=== PATIENT | female | born 1965 | race Caucasian/White ===

== ENCOUNTER → 2020-01-20 | Outpatient (CLI) | payer OTHER ==
--- NOTE | 2020-01-23 12:00 | US ---
EXAM DESCRIPTION: Pelvis Transvaginal: Ultrasound. CLINICAL HISTORY: 54 years Female abnormal perimenopausal bleeding. Right oophorectomy. COMPARISON: None. TECHNIQUE: Endovaginal scanning; Dyson-scale and Doppler modes. FINDINGS: Uterus 6.6 x 3.6 x 2.3 cm 28.5 mL.. Uterus not retroflexed.. Endometrial thickness 2.0 mm. Myometrium heterogeneous. Cervix 3.5 x 3 mm cyst.. Cul-de-sac no fluid. Left ovary 1.9 x 1.8 x 1.7 cm 3 mL.. Normal color Doppler vascularity. No follicles or cysts. No adnexal mass or free fluid. Right ovary surgically absent. IMPRESSION: 1. Normal orientation and size of the uterus. No endometrial thickening. Nabothian cysts in the cervix. No fluid in the cul-de-sac. 2. Left ovary is unremarkable. No adnexal mass or free fluid. Electronically signed by: Carlos Quiroz MD 01/23/2020 11:58 AM CDT
== END ==
LOC: US 11:11
PROVIDERS: ATTEND Nurse Practitioner Family
DX: N92.4 Excessive bleeding in the premenopausal period (principal); N88.8 Other specified noninflammatory disorders of cervix uteri

== ENCOUNTER → 2020-04-02 | Outpatient (CLI) | payer OTHER ==
--- NOTE | 2020-04-03 20:04 | MAM ---
EXAM DESCRIPTION: 3D Screening BILATERAL : Digital Mammography. CLINICAL HISTORY: 54 years Female SCREEN . No complaints. Female sibling with breast cancer age 48. Menarche age unknown. There are childbirth. Postmenopausal age unknown.. Lifetime risk of developing breast cancer (Tyrer-Cuzick model)(%): 16.3. COMPARISON: Baseline study at this facility. No prior reports available. TECHNIQUE: Bilateral CC and MLO projection full-field images, digital tomosynthesis mammographic technique. Bilateral digital 2-D full-field MLO images. CAD available for 2-D images. FINDINGS: The breast parenchymal density pattern is: Scattered areas of fibroglandular density. Axillary nodes. Solitary microcalcifications. Intramammary nodes. No skin thickening or nipple retraction No focal, stellate mass or density, focal asymmetry , and no suspicious microcalcifications bilaterally. IMPRESSION: Benign exam. BIRAD CATEGORY: 2 BENIGN FINDINGS. RECOMMENDATIONS: FOLLOW UP: Routine digital bilateral mammographic screening, one year interval from March 2019. Written communication explaining the IMPRESSION and follow-up, will be mailed to the patient and referring health care provider. According to the [employer], yearly mammograms are recommended starting at age 40 and continuing as long as a woman is in good health. Any breast change noted on a breast self-exam should be reported promptly to the patient's healthcare provider. Breast MRI is recommended for women with an approximately 20-25% or greater lifetime risk of breast cancer, including women with a strong family history of breast or ovarian cancer and women who have been treated for Hodgkin's disease. A negative mammographic report should not delay tissue diagnosis in patients with significant clinical history or physical findings. Extremely dense breast tissue limits the sensitivity of digital mammography. Electronically signed by: Carlos Quiroz MD 04/03/2020 8:03 PM [facility]
== END ==
LOC: MAMMO 09:28
PROVIDERS: ATTEND Nurse Practitioner Family
DX: Z12.31 Encounter for screening mammogram for malignant neoplasm of breast (principal)